=== PATIENT | female | born 1955 | race Caucasian/White ===

== ENCOUNTER 2024-03-25 13:41 | Outpatient (CLI) | payer MEDICARE | END 2024-03-25 13:42 | disposition home or self-care (01) | LOC: BICMRI 13:41 | PROVIDERS: ATTEND Orthopaedic Surgery | DX: M75.112 Incomplete rotator cuff tear or rupture of left shoulder, not specified as traumatic (principal); M67.814 Other specified disorders of tendon, left shoulder; S43.082A Other subluxation of left shoulder joint, initial encounter; M62.89 Other specified disorders of muscle ==